=== PATIENT | female | born 1980 | race Caucasian/White ===

== ENCOUNTER 2020-08-26 07:26 | Day surgery (SDC) | payer OTHER ==
[~2020-08-26] VITALS: Ht 165.1 cm; Wt 105.0 kg
[~2020-08-26 07:26] MED LIST: CALCIUM + D SO1 EACH PO; CARAFATE1 GM PO; D3-5050000 UNIT PO; FLOVENT DISKUS50 MCG INH; FOLIC ACID1 MG PO; GAS RELIEF125 M1 PO; IRON325 M1 PO; MILK OF MA400 MG/5 M PO; OMEPRAZOLE20 MG PO; PRENATAL 19 TA1 EAC1 PO
[2020-08-26] MEDS ORDERED: FLONASE SENSIM5.9 ML (07:48)
--- NOTE | 2020-08-26 09:30 | NUR ---
08/26/20 0930 Kristen Berry 0911 PATIENT ARRIVES TO PACU RESTING WITH EYES CLOSED. OPENS EYES WITH VERBAL STIMULI. RESP EVEN AND UNLABORED, ROOM AIR SATS >94%. BACK TO SLEEP WHEN NOT STIMULATED. 0918 PATIENT WAKES UP AND STATES HER STOMACH IS "UPSET." EMESIS BAG GIVEN. PATIENT BACK TO SLEEP. RESP EVEN AND UNLABORED. ROOM AIR >95%. DR FISHER AT BEDSIDE TO TALK WITH PATIENT. PATIENT BARELY OPENS EYES TO TALK WITH HIM. PATIENT NODS YES WHEN HE ASKS IF SHE CAN HEAR HIM/UNDERSTAND HIM. 0925 OUT PATIENT ORDER FAXED TO US FOR SCHEDULING OF GALLBLADDER US. PATIENT INFORMED AND AWARE THAT IMAGING WILL BE CALLING TO SET UP APPT.
--- NOTE | 2020-08-26 13:10 | NUR ---
1025: PATIENT BACK IN DAY SURGERY ROOM FROM PACU. PATIENT HAD SMALL EMESIS ON ARRIVAL TO DAY SURGERY ROOM. LIGHTS TURNED OFF. COOL WASHCLOTH GIVEN TO PATIENT. IV SITE WNL. CALL LIGHT WITHIN REACH. 1040: PATIENT RESTING. CONTINUES TO BE NAUSEATED. NO NEEDS AT THIS TIME. 1120: VS CHECKED. PATIENT STATED SHE WANTED TO TRY AND GET READY TO GO HOME. AFTER SMALL AMOUNT OF MOVEMENT. PATIENT REQUESTED MORE TIME TO REST. 1215: PATIENT ASSISTED OOB AND TO BATHROOM. SLOW MOVING, BUT GAIT STEADY. IN BATHROOM WITH PATIENT.
--- NOTE | 2020-08-29 08:12 | OR ---
[facility] [address], [place] [address] Signed DATE OF OPERATION: 08/26/2020 SURGEON: Roxanne Fisher MD PREOPERATIVE DIAGNOSIS: Persistent "gurgling" of esophagus and perpetual nausea without associated dysphagia. POSTOPERATIVE DIAGNOSES: 1. Small hiatal hernia. 2. Mild diffuse gastritis, no ulcer. PROCEDURE: Esophagogastroduodenoscopy with biopsy. ANESTHESIA: Intravenous sedation, fentanyl 100 mcg and Versed 3 mg. INDICATIONS: This 40-year-old white woman is a patient of Charanjit Albert. She has had a complaint of sensation of "gurgling" in the upper esophagus upon swallowing and perpetual nausea and feeling sick. She has been treated with Prilosec and simethicone, which have not been curative to her. She does not have typical biliary colic symptoms, though the possibility of atypical biliary disease is also considered. She does have family history of biliary disease in at least one family member and does have obesity and history of childbirth that make her increased risk in that regard. She is admitted at this time to undergo upper endoscopy to better characterize the problem. Understand the risk of bleeding, infection, and perforation. FINDINGS: She was well sedated. She tolerated the procedure well. Esophagus itself looked entirely normal, biopsies were taken in the mid and distal portions. There was a small hiatal hernia. There was mild inflammation in the stomach, but not much and certainly no ulceration. The pylorus was normal as was the duodenum. Biopsies were taken throughout. CLOtest was negative 15 minutes post procedure. DESCRIPTION OF PROCEDURE: The patient was brought to the endoscopy suite given topical lidocaine spray anesthesia and placed in lateral decubitus position. She was given Zofran preoperatively. She has known intolerance to sedation apparently. She was given intravenous sedation to the point of slurred speech and nystagmus with full cardiopulmonary monitoring. A bite Electronically Signed By: [place] [id number] PATIENT NAME: TAMIA ESPINOZA OPERATIVE REPORT DATE OF : [birth year] REPORT #: [id number] PHYSICIAN: ROXANNE FISHER MD PCP: PETER STEINER MD REPORT IS CONFIDENTIAL AND NOT TO BE RELEASED WITHOUT AUTHORIZATION [facility] [address], [place] [address] Signed block was placed. An Olympus video upper endoscope was passed into the hypopharynx. The vocal cords and surrounding soft tissue were normal. Scope was advanced to the esophagus throughout its length, it was entirely normal including the distal portion. There was no Sparrow epithelium or other abnormality. The scope was advanced to the stomach, which was insufflated with air. Rugal folds were normal as was the antral motility. The pylorus was normal. Scope was passed through into the normal-appearing duodenum. Biopsies taken of the distal duodenum and midportion as well. The scope was withdrawn. Biopsies taken of the antrum of the stomach for both MYKE and pathologic testing. Retroflexed view was undertaken showing a loose flap valve consistent with small hiatal hernia. The scope was withdrawn and biopsies taken of the distal esophageal mucosa, and subsequently mid esophageal mucosa. The scope was entirely removed. The patient was taken to the recovery room in good condition. CONCLUDING DIAGNOSIS: Mild gastritis, but not much and under treatment with proton pump inhibitor medication currently. We will initiate Carafate 1 g p.o. q.i.d. on empty stomach to assess for clinical response, but in the meantime, order a gallbladder ultrasound and if negative, a CCK-HIDA test. She will return to see us after the above studies have been completed. MD NIMISHA Tafoya/CHRISSL /[id number] Copies: ~ Electronically Signed By: ROXANNE FISHER MD 08/29/2012 PATIENT NAME: TAMIA ESPINOZA OPERATIVE REPORT DATE OF : [birth year] REPORT #: [id number] PHYSICIAN: ROXANNE FISHER MD PCP: PETER STEINER MD REPORT IS CONFIDENTIAL AND NOT TO BE RELEASED WITHOUT AUTHORIZATION
--- NOTE | 2020-08-30 11:56 | PATH ---
[facility] [address] [place], [place] [address] Signed SPECIMEN(S): A DUODENUM SPECIMEN(S): B ANTRUM/PYLORUS SPECIMEN(S): C LOWER ESOPHAGUS SPECIMEN(S): D MIDDLE ESOPHAGUS SPECIMEN SOURCE: A. DUODENUM B. ANTRUM/PYLORUS C. LOWER ESOPHAGUS D. MIDDLE ESOPHAGUS CLINICAL HISTORY: Preop: History of reflux. Postop: Small hiatal hernia, mild gastritis. MICROSCOPIC DESCRIPTION: Histologic sections of all submitted blocks are examined by light microscopy. These findings, together with the gross examination, support the pathologic diagnosis. FINAL PATHOLOGIC DIAGNOSIS: A. Duodenum, biopsy: - Duodenal mucosa with no histopathologic abnormality. - Negative for increased intraepithelial lymphocytes. - Negative for dysplasia or malignancy. B. Stomach, antrum/pylorus, biopsy: - Antral mucosa with mild chronic, inactive gastritis. - Negative for Helicobacter organisms on HE stain. - Negative for dysplasia or malignancy. C. Esophagus, lower, biopsy: - Squamous mucosa with mild reactive changes, suggestive of reflux esophagitis. - Negative for intestinal metaplasia, dysplasia, or malignancy. D. Esophagus, middle, biopsy: - Squamous mucosa with no histopathologic abnormality. - Negative for increased intraepithelial eosinophils. - Negative for intestinal metaplasia, dysplasia, or malignancy. NAL:cml:C2NR GROSS DESCRIPTION: Four specimens are received in four containers, labeled "Tamia Randle." A. The specimen, labeled "Tamia Randle, 1," and designated on the requisition "duodenum," is received in formalin and consists of two glynn soft tissue PATIENT NAME: TAMIA RANDLE PATHOLOGY DATE OF : 82 REPORT #: [id number] PHYSICIAN: FRANCISCO FELDER PCP: PETER STEINER MD REPORT IS CONFIDENTIAL AND NOT TO BE RELEASED WITHOUT AUTHORIZATION [facility] [address] [place], [place] [address] Signed fragment(s) that measure 0.2 and 0.3 cm in greatest dimension. The specimen is entirely submitted in cassette (A1). B. The specimen, labeled "Tamia Randle, #2," and designated on the requisition "antrum/pylorus," is received in formalin and consists of one glynn soft tissue fragment that measures 0.6 cm in greatest dimension. The specimen is entirely submitted in cassette (B1). C. The specimen, labeled "Tamia Randle, #3," and designated on the requisition "lower esophagus," is received in formalin and consists of two glynn soft tissue fragment(s) that measure 0.3 and 0.4 cm in greatest dimension. The specimen is entirely submitted in cassette (C1). D. The specimen, labeled "Tamia Randle, #4," and designated on the requisition "middle esophagus," is received in formalin and consists of one white-glynn soft tissue fragment that measures 0.4 cm in greatest dimension. The specimen is entirely submitted in cassette (D1). FB (under the direct supervision of a pathologist) The Gross Description was prepared using a voice recognition system. The report was reviewed for accuracy; however, sound-alike word errors, addition and/or deletions may occur. If there is any question about this report, please contact Client Services. PERFORMING LABORATORY: The technical component was performed by [facility], [address] [place] [id number] (Industrial Editor: Enma Kiran MD; CLIA# [id number]). Professional interpretation was performed by [facility], [facility], [address] [address] (CLIA# [id number]). Diagnostician: Estefani Laws MD Pathologist Electronically Signed 08/30/2020 Copies: ~ PATIENT NAME: TAMIA RANDLE PATHOLOGY DATE OF : 82 REPORT #: [id number] PHYSICIAN: FRANCISCO PATHOLOGY PCP: PETER STEINER MD REPORT IS CONFIDENTIAL AND NOT TO BE RELEASED WITHOUT AUTHORIZATION
== END 2020-08-26 12:30 | disposition home or self-care (01) ==
LOC: DS 07:26 → OPS 07:26 → DS 08:30 → OPS 12:30
PROVIDERS: ATTEND Surgery
PROC: 0DB78ZX Excision of Stomach, Pylorus, Via Natural or Artificial Opening Endoscopic, Diagnostic (ICD-10-PCS; 2020-08-26)
PROC: 0DB28ZX Excision of Middle Esophagus, Via Natural or Artificial Opening Endoscopic, Diagnostic (ICD-10-PCS; 2020-08-26)
PROC: 0DB38ZX Excision of Lower Esophagus, Via Natural or Artificial Opening Endoscopic, Diagnostic (ICD-10-PCS; 2020-08-26)
PROC: 0DB98ZX Excision of Duodenum, Via Natural or Artificial Opening Endoscopic, Diagnostic (ICD-10-PCS; principal; 2020-08-26 08:30)
DX: K29.50 Unspecified chronic gastritis without bleeding (principal); K44.9 Diaphragmatic hernia without obstruction or gangrene; K21.9 Gastro-esophageal reflux disease without esophagitis; E66.9 Obesity, unspecified; Z88.1 Allergy status to other antibiotic agents; Z88.0 Allergy status to penicillin; Z79.899 Other long term (current) drug therapy; Z88.5 Allergy status to narcotic agent; Z68.38 Body mass index [BMI] 38.0-38.9, adult
CPT/HCPCS: 99153; G0500; J2250; J2405; J3010; J7121

== ENCOUNTER 2020-09-21 05:45 | Day surgery (SDC) | payer OTHER ==
[~2020-09-21] VITALS: Ht 165.1 cm; Wt 100.0 kg
[~2020-09-21 05:45] MED LIST changes: +FLONASE SENSIM5.9 ML; +TYLENOL325 MG PO
--- NOTE | 2020-09-21 08:51 | NUR ---
09/21/20 0851 Colleen Perez 9173 PT ARRIVED TO PACU ON 6L VIA MASK, PT WAKES EASILY AND DENIES PAIN. RESP EVEN AND UNLABORED. VSS. 0844 O2 REMOVED AND MD AT BEDSIDE TALKING TO PT. PT FOOT ELEVATED AND ICE IN PLACE.
--- NOTE | 2020-09-21 10:39 | NUR ---
0915 C/O BLADDER PAIN. BLADDER SCANNED FOR 804 MLS IN BLADDER. CALL TO DR LOWERY FOR STRAIGHT CATH ORDER.
--- NOTE | 2020-09-21 10:58 | NUR ---
0920 TO 0940 WANTED TO SIT ON BSC. UNABLE TO VOID. RETURNED TO BED. 2 PERSON ASSIST. STRAIGHT CATHED STERILE TECHNIQUE FOR 1000MLS LIGHT YELLOW URINE. FEELS BETTER. AWAITING FOR SPINAL TO RESOLVE. CAN MOVE FEET AND LEGS COULD FEEL FLOOR UNDER FEET BUT CANT PICK FEET UP.
--- NOTE | 2020-09-21 12:27 | NUR ---
HAS DRANK 1000MLS WATER. DOESNT FEEL NEED TO VOID. WILL CONTINUE TO WAIT.
--- NOTE | 2020-09-21 13:02 | NUR ---
AMB TO BR WITH SHOE ON. VOIDS 900MLS. READY TO GO HOME.
--- NOTE | 2020-09-23 14:38 | PATH ---
[facility] [address] [place], [place] [address] Signed SPECIMEN(S): A PLANTAR, RIGHT HEEL SPECIMEN SOURCE: A. PLANTAR, RIGHT HEEL CLINICAL HISTORY: Excision. Neoplasm, soft tissue mass of right plantar heel. FINAL PATHOLOGIC DIAGNOSIS: Soft tissue mass, plantar right heel, excision: - Fragments of fibromembranous tissue admixed with adipose tissue, suggestive of lipoma. - Negative for atypia and malignancy. DF:bg:C2NR MICROSCOPIC EXAMINATION: Histologic sections of all submitted blocks are examined by light microscopy. These findings, together with the gross examination, support the pathologic diagnosis. GROSS DESCRIPTION: The specimen, labeled ", A," and designated on the requisition "soft tissue mass plantar right heel, neoplasm soft tissue mass, plantar right heel," is received in formalin and consists of an unoriented, glynn-white fibrous to yellow fibrofatty, ragged, 2.1 x 1.3 x 0.3 cm tissue piece. The external surface is inked blue and the specimen is submitted in toto in one cassette (A1). AI (under the direct supervision of a pathologist) The Gross Description was prepared using a voice recognition system. The report was reviewed for accuracy; however, sound-alike word errors, addition and/or deletions may occur. If there is any question about this report, please contact Client Services. PERFORMING LABORATORY: [facility] by [facility], [address] [address] (CLIA# [id number]). Diagnostician: Timur Mcnally DO Pathologist Electronically Signed 09/23/2020 PATIENT NAME: TAMIA ESPINOZA PATHOLOGY DATE OF : 82 REPORT #: [id number] PHYSICIAN: FRANCISCO PATHOLOGY PCP: FRANCI JERRY PAC REPORT IS CONFIDENTIAL AND NOT TO BE RELEASED WITHOUT AUTHORIZATION [address] [address] Signed Copies: ~ PATIENT NAME: TAMIA ESPINOZA PATHOLOGY DATE OF : [birth year] REPORT #: [id number] PHYSICIAN: FRANCISCO PATHOLOGY PCP: FRANCI JERRY PAC REPORT IS CONFIDENTIAL AND NOT TO BE RELEASED WITHOUT AUTHORIZATION
--- NOTE | 2020-10-04 16:10 | OR ---
[facility] [address] [place], [place] [address] Signed DATE OF OPERATION: 09/21/2020 SURGEON: Charanjit Astudillo DPM PREOPERATIVE DIAGNOSIS: Neoplasm of uncertain behavior/soft tissue mass, right heel. POSTOPERATIVE DIAGNOSIS: Neoplasm of uncertain behavior/soft tissue mass, right heel. WALL TAPER: Kip Madrigal DPM CENSUS CLERK: Charanjit Piper ANESTHESIA: Spinal with monitored anesthesia care. SPECIMENS: Soft tissue mass, right heel, sent to Pathology. PROCEDURE: Excision of soft tissue mass, right heel. PROCEDURE IN DETAIL: The patient was brought to the operating room and placed on the table in the prone position. The Department of Anesthesia administered spinal anesthetic and IV sedation. The right leg and foot was then prepped and draped in the usual sterile manner and an Esmarch was used for hemostasis. Attention was initially directed to the posterior aspect of the right heel at approximately the level of the junction of dorsal and plantar skin where a transverse incision was made approximately 2.5 cm in length, full thickness through the dermis, then deepened through subcutaneous tissue using careful dissection as necessary for hemostasis. Once through the fascia at the posterior/plantar aspect of the heel, normal fat pad was noted. Dissection was carried in a plantar direction and a very tough, thick fibrous layer noted at this site, which appeared to be the source of the lump noted to the right Electronically Signed By: CHARANJIT ASTUDILLO DPM 10/04/20 1610 PATIENT NAME: TAMIA ESPINOZA OPERATIVE REPORT DATE OF : 82 REPORT #: [id number] PHYSICIAN: CHARANJIT ASTUDILLO DPM PCP: FRANCI JRERY PAC REPORT IS CONFIDENTIAL AND NOT TO BE RELEASED WITHOUT AUTHORIZATION [facility] [address] [place], [place] [address] Signed heel. Dissection then carried more superficial to this, opening this area on both sides, and noting that there was no abnormal tissue superficial to this; therefore, the fibrous tissue appeared to be the lump, with excision of this fibrous tissue lump, it appeared to resolve the palpable lesion noted to the heel. At this time, the lesion was removed and sent for pathology and inspection was made for any remaining lesion or abnormal soft tissue and none was found. The surgical site then irrigated with copious amounts of normal saline, then deep fascia closed with 3-0 Vicryl, and then skin closed with 4-0 nylon. Dressings then applied consisting of Adaptic, Betadine-soaked gauze, dry gauze, Flexicon, and Coban for mild compression as well as to secure the dressings. Prior to placement of the dressings, a postoperative injection was given using approximately 6 mL of a 5:1 mixture, 0.5% ropivacaine plain and dexamethasone phosphate 4 mg/mL. INTRAOPERATIVE COMPLICATIONS: None. ESTIMATED BLOOD LOSS: Less than 5 mL. The patient tolerated the procedure and the anesthesia well and left the operating room with vital signs stable and vascular status intact to the right foot as evidenced by hyperemia with removal of the Esmarch. Charanjit Astudillo DPM DFB/MODL /[id number] Copies: ~ Electronically Signed By: CHARANJIT ASTUDILLO DPM 10/04/20 1610 PATIENT NAME: TAMIA ESPINOZA OPERATIVE REPORT DATE OF : 82 REPORT #: [id number] PHYSICIAN: CHARANJIT ASTUDILLO DPM PCP: FRANCI JERRY PAC REPORT IS CONFIDENTIAL AND NOT TO BE RELEASED WITHOUT AUTHORIZATION
== END 2020-09-21 13:05 | disposition home or self-care (01) ==
LOC: DS 05:45 → OPS 05:45 → DS 06:45 → OPS 13:05
PROVIDERS: ATTEND Podiatrist Foot Surgery
PROC: 0JBQ0ZZ Excision of Right Foot Subcutaneous Tissue and Fascia, Open Approach (ICD-10-PCS; principal; 2020-09-21 06:45)
DX: M72.2 Plantar fascial fibromatosis (principal); K21.9 Gastro-esophageal reflux disease without esophagitis; F41.9 Anxiety disorder, unspecified; F32.9 Major depressive disorder, single episode, unspecified; Z79.899 Other long term (current) drug therapy; Z88.5 Allergy status to narcotic agent; Z91.040 Latex allergy status; Z88.0 Allergy status to penicillin; Z88.1 Allergy status to other antibiotic agents
CPT/HCPCS: 01480; J1100; J2001; J2405; J2704; J2795; J7121

== ENCOUNTER 2022-06-08 08:50 | Day surgery (SDC) | payer OTHER ==
[~2022-06-08] VITALS: Ht 165.1 cm; Wt 88.6 kg
--- NOTE | 2022-06-08 11:57 | NUR ---
06/08/22 Colleen Timmons 1152 PT ARRIVED TO PACU, PT ASLEEP AND VSS. 1157 PT WAKES AND IS ORIENTED TO PACU, PT EASILY FALLS BACK TO SLEEP.
--- NOTE | 2022-06-09 11:07 | OR ---
[facility] [address] [place], [place] [address] Signed DATE OF OPERATION: 06/08/2022 SURGEON: Roxanne Fisher MD PREOPERATIVE DIAGNOSES: 1. History of anal fissure (resolved) with previous rectal bleeding. 2. Chronic gastroesophageal reflux. POSTOPERATIVE DIAGNOSES: 1. Normal-appearing colon except for minimal proctitis. 2. Hiatal hernia with distal esophagitis and gastroduodenitis. PROCEDURES: 1. Esophagogastroduodenoscopy with biopsy. 2. Total colonoscopy to cecum with biopsy of rectum; intubation of the ileum (grossly normal). ANESTHESIA: Intravenous sedation, propofol infusion; Jake Pride CRNA INDICATIONS: This 42-year-old white woman is a patient of Charanjit Albert and was evaluated by me and found to have an anal fissure at the time of anal pain and rectal bleeding. She was treated with diltiazem ointment and other measures and those symptoms resolved entirely. Based on her age and the rectal bleeding that was associated with presumably the fissure, I have recommended colonoscopy to assure that there were no proximal lesions accounting for the bleeding other than the fissure. Additionally, the patient has chronic gastroesophageal reflux, generally controlled symptom blevins with PPI medication. I have offered concurrent upper endoscopy to the colonoscopy. The risks of bleeding, infection, and perforation related to upper endoscopy and colonoscopy were reviewed with her, she understands and wished to proceed. FINDINGS: Upper endoscopy showed distal chronic esophagitis, but no evidence of Sparrow epithelium stricture or neoplasm. There was a hiatal hernia to be sure. The duodenum and stomach had mild inflammation, but not much and certainly no sign of ulceration or neoplasm. CLOtest was negative 30 minutes post procedure. On colonoscopy, the prep was excellent. Complete colonoscopy was undertaken of cecum Electronically Signed By: ROXANNE FISHER MD 06/09/22 1107 PATIENT NAME: TAMIA ESPINOZA OPERATIVE REPORT DATE OF : [birth year] REPORT #: [id number] PHYSICIAN: ROXANNE FISHER MD PCP: FRANCI JERRY PAC REPORT IS CONFIDENTIAL AND NOT TO BE RELEASED WITHOUT AUTHORIZATION [facility] [address] [place], [place] [address] Signed and intubation of the ileum was accomplished as well. The colon and ileum were essentially normal. There was mild proctitis likely related to bowel prep. I saw no evidence of fissure. Biopsies were taken of the rectum. DESCRIPTION OF PROCEDURE: The patient was brought to the endoscopy suite and placed in lateral decubitus position given intravenous sedation with propofol infusional technique. A bite block was placed. An Olympus video upper endoscope was passed into the hypopharynx. The vocal cords appeared normal. Scope was advanced to the esophagus and throughout its length it was normal except in the distal portion, where there was mild chronic inflammatory change. No Sparrow epithelium, stricture, or neoplasm. Scope was advanced to the stomach, which was insufflated with air. Rugal folds were somewhat flattened. Motility appeared normal. Pylorus was normal. Scope was passed through into the duodenum, which showed mild inflammatory change, but no ulcer. Biopsies were obtained. The scope was withdrawn and biopsies then taken of the antrum for both MYKE and pathologic testing. Retroflexed view confirmed a moderate-sized hiatal hernia. Scope was straightened and withdrawn to the distal esophagus, where biopsies were obtained; that mucosa did have chronic inflammation as well, but no Sparrow epithelium. The scope was withdrawn and distal and middle esophagus biopsies were also obtained. The scope was withdrawn and removed. Plans were made for colonoscopy. Digital rectal examination was normal. I saw no evidence of fissure or stricture. The Olympus video colonoscope was passed into the rectum and manipulated throughout the colon, ultimately intubating the cecum itself. The ileocecal valve was easily intubated. Ileum mucosa was normal. Scope was withdrawn. Withdrawal of scope showed no sign of polyps, diverticular formation, colitis, or cancer. There was minimal inflammation of the distal rectum, probably bowel prep related. Biopsies obtained to be sure. The scope was removed. The patient was taken to the recovery room in good condition. CONCLUDING DIAGNOSES: 1. Gastroesophageal reflux with good symptom control on PPI medication. We recommend continued medication. 2. No evidence of lesion to account for previous bleeding; anal fissure appears to be completely healed. PLAN: Recommend repeat colonoscopy in 10 years. Recommend also maintain high-fiber diet and avoid constipation. She will return to the ongoing care of Charanjit Albert. Electronically Signed By: ROXANNE FISHER MD 06/09/22 1107 PATIENT NAME: TAMIA ESPINOZA OPERATIVE REPORT DATE OF : [birth year] REPORT #: [id number] PHYSICIAN: ROXANNE FISHER MD PCP: FRANCI JERRY PAC REPORT IS CONFIDENTIAL AND NOT TO BE RELEASED WITHOUT AUTHORIZATION [address] [address] Signed Roxanne Fisher MD JM/MODL /[id number] cc: Charanjit Albert Copies: ~ Electronically Signed By: ROXANNE FISHER MD 06/09/22 1107 PATIENT NAME: ALEXISTAMIA DANIELITO OPERATIVE REPORT DATE OF : 82 REPORT #: [id number] PHYSICIAN: ROXANNE FISHER MD PCP: FRANCI JERRY PAC REPORT IS CONFIDENTIAL AND NOT TO BE RELEASED WITHOUT AUTHORIZATION
--- NOTE | 2022-06-13 13:32 | PATH ---
[facility] [address], [place] [address] Signed SPECIMEN(S): A DUODENAL BIOPSY SPECIMEN(S): B ANTRUM/PYLORUS BIOPSY SPECIMEN(S): C DISTAL ESOPHAGEAL BIOPSY SPECIMEN(S): D MID ESOPHAGEAL BIOPSY SPECIMEN(S): E RECTAL BIOPSY SPECIMEN SOURCE: A. DUODENAL BIOPSY B. ANTRUM/PYLORUS BIOPSY C. DISTAL ESOPHAGEAL BIOPSY D. MID ESOPHAGEAL BIOPSY E. RECTAL BIOPSY CLINICAL HISTORY: History of anal fissure, history of reflux, dysphagia. Post: Mild gastritis, esophagitis, hiatal hernia. EGD/colonoscopy. FINAL PATHOLOGIC DIAGNOSIS: A. Duodenal biopsy: - Benign duodenal mucosa, negative for specific diagnostic abnormality. B. Antrum / pylorus biopsy: - Benign gastric-type mucosa with focal slight chronic inflammation. - Negative for Helicobacter organisms on routine HE stained sections. C. Distal esophageal biopsy: - Benign esophageal epithelium, negative for increased epithelial eosinophils. - Negative for glandular mucosa. D. Mid esophageal biopsy: - Benign esophageal epithelium, negative for increased epithelial eosinophils. E. Rectal biopsy: - Hyperplastic polyp (one fragment). [id number] MICROSCOPIC EXAMINATION: Histologic sections of all submitted blocks are examined by light microscopy. These findings, together with the gross examination, support the pathologic diagnosis. GROSS DESCRIPTION: Five specimens are received in five containers, labeled "." A. The specimen, labeled ", 1," and designated on the requisition "duodenum biopsy," is received in formalin and consists of two glynn soft tissue fragments PATIENT NAME: TAMIA ESPINOZA PATHOLOGY DATE OF : 82 REPORT #: [id number] PHYSICIAN: FRANCISCO FELDER PCP: FRANCI JERRY PAC REPORT IS CONFIDENTIAL AND NOT TO BE RELEASED WITHOUT AUTHORIZATION [facility] [address], [place] [address] Signed that measure 0.2 and 0.4 cm in greatest dimension. The specimen is entirely submitted in cassette (A1). B. The specimen, labeled ", 2," and designated on the requisition "antrum/pylorus biopsy," is received in formalin and consists of two glynn soft tissue fragments that measure 0.3 and 0.5 cm in greatest dimension. The specimen is entirely submitted in cassette (B1). C. The specimen, labeled ", 3," and designated on the requisition "distal esophagus biopsy," is received in formalin and consists of three glynn-white soft tissue fragments that measure 0.3 cm in greatest dimension. The specimen is entirely submitted in cassette (C1). D. The specimen, labeled ", 4," and designated on the requisition "the middle esophagus biopsy," is received in formalin and consists of two glynn-white soft tissue fragments that measure 0.4 cm in greatest dimension. The specimen is entirely submitted in cassette (D1). E. The specimen, labeled ", 5," and designated on the requisition "rectum biopsy," is received in formalin and consists of one glynn soft tissue fragment that measures 0.4 cm in greatest dimension. The specimen is entirely submitted in cassette (E1). AI (under the direct supervision of a pathologist) The Gross Description was prepared using a voice recognition system. The report was reviewed for accuracy; however, sound-alike word errors, addition and/or deletions may occur. If there is any question about this report, please contact Client Services. PERFORMING LABORATORY: The technical component was performed by [facility], [address] [place] [id number] (CLIA# [id number]). Professional interpretation was performed by [facility], [address] [place] [address], [place] [address] (CLIA#: [id number]). Diagnostician: Julien Tripp MD Pathologist Electronically Signed 06/13/2022 Copies: ~ PATIENT NAME: TAMIA ESPINOZA PATHOLOGY DATE OF : 82 REPORT #: [id number] PHYSICIAN: FRANCISCO FELDER PCP: FRANCI JERRY PAC REPORT IS CONFIDENTIAL AND NOT TO BE RELEASED WITHOUT AUTHORIZATION
== END 2022-06-08 12:52 | disposition home or self-care (01) ==
LOC: OPS 08:50 → DS 08:50 → OPS 10:30 → DS 10:30 → OPS 11:50
PROVIDERS: ATTEND Surgery
PROC: 0DB98ZX Excision of Duodenum, Via Natural or Artificial Opening Endoscopic, Diagnostic (ICD-10-PCS; principal; 2022-06-08 11:50)
PROC: 0DBP8ZX Excision of Rectum, Via Natural or Artificial Opening Endoscopic, Diagnostic (ICD-10-PCS; 2022-06-08 11:50)
DX: K62.1 Rectal polyp (principal); K21.9 Gastro-esophageal reflux disease without esophagitis; K44.9 Diaphragmatic hernia without obstruction or gangrene; K20.90 Esophagitis, unspecified without bleeding; K29.90 Gastroduodenitis, unspecified, without bleeding
CPT/HCPCS: 00731; J2704; J7121

== ENCOUNTER 2024-07-18 22:44 | Emergency (ER) | payer OTHER ==
[~2024-07-18] VITALS: Ht 165.1 cm; Wt 83.8 kg
[~2024-07-18 22:44] MED LIST changes: +CALCIUM 500 MG1 EAC4 PO; +MULTI VITAMIN1 EACH PO
[2024-07-18 23:21] LABS: BASOPHILS 1.3 % (0-2); EOSINOPHILS 1.6 % (0-6); HEMATOCRIT 38.7 % (35.0-50.0); HEMOGLOBIN 13.3 g/dL (12.0-18.0); LYMPHOCYTES 34.5 % (24-44); MCH 30.6 (27-36); MCHC 34.4 g/dl (30-36); MCV 88.9 fl (81-99); MONOCYTES 6.1 % (0-12); NEUTROPHILS 56.5 % (39-80); PLATELET COUNT 242 K/uL (140-440); RBC 4.35 M/ul (4.3-5.7); RDW 13.4 (10.5-15.0)
[2024-07-18 23:44] LABS: ALBUMIN 3.7 g/dL (3.4-5.0); ALBUMIN/GLOBULIN RATIO 1.37 (1.1-2.4); ALKALINE PHOSPHATASE 38 U/L (46-116); ALT (SGPT) 16 U/L (14-59); ANION GAP 11.9 (7-21); AST (SGOT) 12 U/L (15-37); BILIRUBIN, TOTAL 0.5 ng/dL (0.2-1.0); CALCIUM 8.7 mg/dL (8.5-10.1); CARBON DIOXIDE 26 mmol/L (21-32); CHLORIDE 105 mmol/L (98-107); GLOMERULAR FILTRATION RATE,EST 94 mL/min (>60); MAGNESIUM 1.9 mg/dL (1.8-2.4); POTASSIUM 3.9 mmol/L (3.5-5.1); PROTEIN, TOTAL 6.4 g/dL (6.4-8.2); TSH, 3RD GENERATION 2.002 uIU/mL (0.358-3.740); UREA NITROGEN 10 mg/dL (7-18)
[2024-07-18 23:53] LABS: AMPHETAMINES, URINE NEGATIVE (NEGATIVE); BARBITURATES, URINE NEGATIVE (NEGATIVE); BENZODIAZEPINE, URINE NEGATIVE (NEGATIVE); BUPRENORPHINE, URINE NEGATIVE (NEGATIVE); CANNABINOID, URINE NEGATIVE (NEGATIVE); COCAINE, URINE NEGATIVE (NEGATIVE); ECSTASY, URINE NEGATIVE (NEGATIVE); FENTANYL, URINE NEGATIVE (NEGATIVE); METHADONE, URINE NEGATIVE (NEGATIVE); OPIATES, URINE NEGATIVE (NEGATIVE); OXYCODONE, URINE NEGATIVE (NEGATIVE); PHENCYCLIDINE, URINE NEGATIVE (NEGATIVE)
[2024-07-19 00:20] VITALS: BP 102/56
--- NOTE | 2024-07-20 07:57 | EKG ---
[facility] [address] [facility] [place] [address] Signed Normal sinus rhythm Normal ECG No previous ECGs available Confirmed by Randolph Tobin MD () on 07/20/2024 7:56:58 AM Electronically Signed By: RANDOLPH TOBIN MD 07/20/24 0757 PATIENT NAME: TAMIA ESPINOZA Electrocardiogram DATE OF : 82 PHYSICIAN: RANDOLPH TOBIN MD REPORT #: [id number] REPORT IS CONFIDENTIAL AND NOT TO BE RELEASED WITHOUT AUTHORIZATION
[2024-07-20 12:49] LABS: THYROXINE 7.6 ug/dL (4.50-11.70)
== END 2024-07-19 00:21 | disposition home or self-care (01) ==
LOC: ED 22:44
PROVIDERS: Internal Medicine
DX: R00.2 Palpitations (principal); F41.9 Anxiety disorder, unspecified; Z91.040 Latex allergy status; Z88.0 Allergy status to penicillin; Z88.5 Allergy status to narcotic agent; Z88.8 Allergy status to other drugs, medicaments and biological substances; Z79.899 Other long term (current) drug therapy
CPT/HCPCS: 36415; 80053; 80307; 83735; 84436; 84443; 84484; 84703; 85025; 93005; 93010; 99285